=== PATIENT | female | born 1950 | race Caucasian/White ===

== ENCOUNTER 2018-04-18 10:00 | Inpatient (IN) | payer MEDICARE ==
[2018-04-16 14:17] LABS: BASOPHILS # (AUTO) 0.2 X10'3 (0-0.2); BASOPHILS % (AUTO) 1.8 % (0-1); EOSINOPHILS # (AUTO) 0.4 X10'3 (0-0.9); EOSINOPHILS % (AUTO) 3.1 % (0-6); LYMPHOCYTES # (AUTO) 2.4 X10'3 (1.1-4.8); LYMPHOCYTES % (AUTO) 17.7 % (21-51); MEAN CORPUSCULAR HEMOGLOBIN 30.6 PG (27.0-31.0); MEAN CORPUSCULAR HGB CONC 34.3 % (33.0-36.5); MEAN CORPUSCULAR VOLUME 89.2 FL (78-98); MEAN PLATELET VOLUME 8.6 FL (7.4-10.4); MONOCYTES # (AUTO) 0.7 X10'3 (0-0.9); MONOCYTES % (AUTO) 5.1 % (2-12); NEUTROPHILS % (AUTO) 72.3 % (42-75); PRE OP HEMATOCRIT 41.4 % (35.0-45.0); PRE OP HEMOGLOBIN 14.2 g/dL (12.0-16.0); PRE OP PLATELET COUNT 291 X10'3 (140-440); RED BLOOD COUNT 4.64 X10'6 (4.20-5.60); RED CELL DISTRIBUTION WIDTH 13.4 % (11.5-14.5)
[2018-04-16 14:30] LABS: CLARITY,URINE CLEAR (Clear); COLOR,URINE YELLOW (Yellow); GLUCOSE, URINE NEGATIVE (Neg); KETONES,URINE TRACE mg/dl (Neg); LEUKOCYTE ESTERASE ,URINE TRACE (Neg); NITRITES, URINE NEGATIVE (Neg); OCCULT BLOOD,URINE NEGATIVE (Neg); PH,URINE 5.5 (4.8-8.0); PROTEIN,URINE NEGATIVE (Neg); UROBILINOGEN,URINE 0.2 E.U/dL (0.2-1.0)
[2018-04-16 14:32] LABS: PRE OP PROTIME 9.7 SECONDS (9.0-12.0)
[2018-04-16 14:33] LABS: ALBUMIN 3.8 G/DL (3.4-5.0); ALBUMIN/GLOBULIN RATIO 1.1 (1.1-1.5); ALKALINE PHOSPHATASE 80 IU/L (46-116); BLOOD UREA NITROGEN 12 MG/DL (7-18); BUN/CREATININE RATIO 18.2 (6.6-38.0); CALCIUM 9.6 MG/DL (8.5-10.1); CHLORIDE 103 MMOL/L (99-107); CREATININE 0.66 MG/DL (0.40-0.90); PRE OP ALT 68 U/L (30-65); PRE OP ANION GAP 12 (8-16); PRE OP AST 42 U/L (10-37); PRE OP BILIRUB, TOTAL 0.3 MG/DL (0.0-1.0); PRE OP GLUCOSE 124 MG/DL (70-104); PRE OP POTASSIUM 3.5 MMOL/L (3.4-5.1); PRE OP SODIUM 142 MMOL/L (135-145); TOTAL CARBON DIOXIDE 27.5 MMOL/L (24-32); TOTAL PROTEIN 7.4 G/DL (6.4-8.2); eGFR 90 ML/MIN
[2018-04-16 14:45] LABS: UA COLLECTION TYPE CLN CATCH MIDSTREAM
[2018-04-16 14:46] LABS: RBC,URINE NONE SEEN /HPF (0-2)
[2018-04-16 14:47] LABS: BACTERIA,URINE NONE SEEN /HPF (Neg); SQUAMOUS EPITHELIAL CELL,UR FEW /LPF (FEW)
[2018-04-18] VITALS (20 sets, daily range): BP systolic 91–119; BP diastolic 57–80
[~2018-04-18] VITALS: Ht 167.6 cm; Wt 54.4 kg
[~2018-04-18 10:00] MED LIST: IBUP100O19 PO; MESA0.37 PO; OMEP40CA37 PO; VANCOMYCIN INJ 1000 MG in NORMAL SALINE 250ml IV.SOLN IV ONE; acetaminophen 325mg tablet PO ONE; cefazolin/dext.iso 2gm/100 ML IV ONE; celeCOXIB 100mg capsule PO ONE; famotidine 20mg tablet PO ONE; gabapentin 300mg capsule PO ONE; metoclopramide 5 mg/ml inj IV ONE; oxyCODONE SR 10mg (sust. release) tab -2 tabs (20mg) PO ONE; ringers solution, lacted 1,000 ML IV SCH; tranexamic acid inj. 1,000 MG in normal saline 100ml IV soln 90 ML IV ONE
[2018-04-18] MEDS ORDERED: diphenhydrAMINE 25mg capsule PO PRN ×2 (10:35)
[2018-04-18] MEDS ORDERED: magnesium hydroxide 30ml (MOM) UD suspension PO PRN (10:35)
[2018-04-18] MEDS: pantoprazole 40mg Tablet.DR PO SCH (10:35)
[2018-04-18] MEDS ORDERED: bisacodyl 10mg suppository rectal RC PRN (10:35)
[2018-04-18] MEDS ORDERED: acetaminophen 325mg tablet PO PRN (10:35)
[2018-04-18] MEDS ORDERED: HYDROmorphone 1 mg/ml syringe IV PRN ×2 (10:35)
[2018-04-18] MEDS ORDERED: oxyCODONE/APAP 5-325mg tablet PO PRN (10:35)
[2018-04-18] MEDS ORDERED: LIDOcaine 1% (10mg/ml) 2ml vial ONE (11:11)
[2018-04-18] MEDS ORDERED: EPINEPHRINE SQ ONE (12:00)
[2018-04-18] MEDS ORDERED: ROPIVACAINE SQ ONE (12:00)
[2018-04-18] MEDS ORDERED: NORMAL SALINE SQ ONE (12:00)
[2018-04-18] MEDS ORDERED: vancomycin 1,000mg inj ONE (12:04)
[2018-04-18] MEDS ORDERED: ketorolac trometh. 30mg/ml inj. ONE (12:04)
[2018-04-18] MEDS ORDERED: ROPIVAcaine 0.5% (5mg/ml) 30ml vial ONE (12:08)
[2018-04-18] MEDS ORDERED: tetracaine 1% (10mg/ml) pres. free inj. ONE (12:08)
[2018-04-18] MEDS ORDERED: MIDAZolam 1mg/ml 10ml vial ONE (12:55)
[2018-04-18] MEDS ORDERED: BUPIVAcaine/dex-water/PF 7.5 mg/ml 2ml ampul ONE (12:56)
[2018-04-18] MEDS ORDERED: fentaNYL/PF 50MCG/1 ML 2ML syringe ONE (12:56)
[2018-04-18] MEDS ORDERED: ePHEDrine 50MG/ML INJ. ONE (13:22)
[2018-04-18] MEDS ORDERED: ringers solution, lacted 1,000 ML IV SCH (13:39)
[2018-04-18] MEDS ORDERED: ondansetron/PF 4mg/2ml inj IV PRN ×2 (13:40→13:45)
[2018-04-18] MEDS ORDERED: hydrALAZINE 20mg/ml inj. IV PRN (13:40)
[2018-04-18] MEDS ORDERED: labetalol 20mg/4ml (5mg/ml) syringe IV PRN (13:40)
[2018-04-18] MEDS ORDERED: fentaNYL/PF 50MCG/1 ML 2ML syringe IV PRN ×2 (13:40)
[2018-04-18] MEDS ORDERED: morphine 4 MG/ML inj SYRINge IV PRN ×2 (13:40)
[2018-04-18] MEDS ORDERED: diphenhydrAMINE 50 mg/ml inj IV PRN (13:45)
[2018-04-18] MEDS: ceFAZolin 1GM/D5W- ADD-VANTAGE 50 ML IV SCH (17:26)
[2018-04-18] MEDS: potassium cl 20mEq in 1/2 NS 1,000 ML IV SCH ×2 (17:32→18:32)
[2018-04-18] MEDS ORDERED: tranexamic acid inj. 1,000 MG in normal saline 100ml IV soln 100 ML IV ONE (19:00)
[2018-04-18] MEDS: ascorbic acid 500mg tablet PO SCH (19:58)
[2018-04-18] MEDS ORDERED: vancomycin/NS 1 GM ADD-VANTAGE 250 ML IV SCH (20:00)
[2018-04-18] MEDS: gabapentin 300mg capsule PO SCH (20:19)
[2018-04-18] MEDS: sennosides 8.6mg tablet PO SCH (20:19)
[2018-04-19] MEDS: ceFAZolin 1GM/D5W- ADD-VANTAGE 50 ML IV SCH (00:20)
[2018-04-19 03:00] VITALS: BP 85/53
[2018-04-19] MEDS: potassium cl 20mEq in 1/2 NS 1,000 ML IV SCH ×3 (03:28→22:42)
[2018-04-19] MEDS: ondansetron/PF 4mg/2ml inj IV PRN ×3 (05:41→18:52)
[2018-04-19 06:00] VITALS: BP 91/53
[2018-04-19 06:50] LABS: BASOPHILS % (AUTO) 0.5 % (0-1); EOSINOPHILS # (AUTO) 0.4 X10'3 (0-0.9); HEMATOCRIT 31.2 % (35.0-45.0); HEMOGLOBIN 10.1 g/dl (12.0-16.0); LYMPHOCYTES # (AUTO) 2.3 X10'3 (1.1-4.8); LYMPHOCYTES % (AUTO) 25.1 % (21-51); MEAN CORPUSCULAR HGB CONC 32.3 % (33.0-36.5); MEAN CORPUSCULAR VOLUME 89.7 FL (78-98); MEAN PLATELET VOLUME 8.4 FL (7.4-10.4); MONOCYTES # (AUTO) 0.8 X10'3 (0-0.9); MONOCYTES % (AUTO) 8.5 % (2-12); NEUTROPHILS # (AUTO) 5.7 X10'3 (1.8-7.7); NEUTROPHILS % (AUTO) 61.9 % (42-75); PLATELET COUNT 240 X10'3 (140-440); RED BLOOD COUNT 3.48 X10'6 (4.20-5.60); RED CELL DISTRIBUTION WIDTH 14.2 % (11.5-14.5); WHITE BLOOD COUNT 9.2 X10'3 (4.5-11.0)
[2018-04-19 07:15] LABS: ANION GAP 8 (8-16); CHLORIDE 104 MMOL/L (99-107); POTASSIUM 3.8 MMOL/L (3.5-5.1); SODIUM 137 MMOL/L (135-145); TOTAL CARBON DIOXIDE 25.3 MMOL/L (24-32)
[2018-04-19] MEDS: multivitamins, therapeutics tablet PO SCH (08:13)
[2018-04-19] MEDS: aspirin 325mg tablet PO SCH (08:13)
[2018-04-19] MEDS: gabapentin 300mg capsule PO SCH ×3 (08:13→22:35)
[2018-04-19] MEDS: ascorbic acid 500mg tablet PO SCH ×2 (08:13→19:54)
[2018-04-19 10:20] VITALS: BP 104/62
[2018-04-19] MEDS: oxyCODONE/APAP 10/325mg tablet PO PRN ×3 (11:34→19:55)
[2018-04-19 14:00] VITALS: BP 98/58
[2018-04-19] MEDS: APRISO 0.375 GM PO SCH (14:56)
[2018-04-19 18:00] VITALS: BP 101/68
[2018-04-19] MEDS ORDERED: lactose-reduced food (Ensure High Protein) 237ml bottle PO SCH (18:00)
[2018-04-19] MEDS: celeCOXIB 100mg capsule PO SCH (19:55)
[2018-04-19] MEDS: sennosides 8.6mg tablet PO SCH (21:00)
[2018-04-19 22:00] VITALS: BP 111/65
[2018-04-20] MEDS: ondansetron/PF 4mg/2ml inj IV PRN ×2 (02:14→07:56)
[2018-04-20] MEDS: oxyCODONE/APAP 10/325mg tablet PO PRN ×4 (02:15→17:41)
[2018-04-20 06:00] VITALS: BP 150/90
[2018-04-20 07:05] LABS: BASOPHILS # (AUTO) 0.1 X10'3 (0-0.2); BASOPHILS % (AUTO) 0.7 % (0-1); EOSINOPHILS # (AUTO) 0.3 X10'3 (0-0.9); EOSINOPHILS % (AUTO) 2.8 % (0-6); HEMATOCRIT 31.2 % (35.0-45.0); HEMOGLOBIN 10.3 g/dl (12.0-16.0); LYMPHOCYTES # (AUTO) 1.1 X10'3 (1.1-4.8); LYMPHOCYTES % (AUTO) 11.9 % (21-51); MEAN CORPUSCULAR HEMOGLOBIN 29.6 PG (27.0-31.0); MEAN CORPUSCULAR VOLUME 89.7 FL (78-98); MEAN PLATELET VOLUME 8.9 FL (7.4-10.4); MONOCYTES % (AUTO) 10.3 % (2-12); NEUTROPHILS # (AUTO) 7.1 X10'3 (1.8-7.7); NEUTROPHILS % (AUTO) 74.3 % (42-75); PLATELET COUNT 256 X10'3 (140-440); RED BLOOD COUNT 3.48 X10'6 (4.20-5.60); RED CELL DISTRIBUTION WIDTH 13.8 % (11.5-14.5); WHITE BLOOD COUNT 9.6 X10'3 (4.5-11.0)
[2018-04-20] MEDS: ascorbic acid 500mg tablet PO SCH ×2 (08:00→20:12)
[2018-04-20] MEDS: APRISO 0.375 GM PO SCH (08:00)
[2018-04-20] MEDS: gabapentin 300mg capsule PO SCH ×3 (08:00→20:12)
[2018-04-20] MEDS: multivitamins, therapeutics tablet PO SCH (08:00)
[2018-04-20] MEDS: celeCOXIB 100mg capsule PO SCH ×2 (08:00→20:12)
[2018-04-20] MEDS: aspirin 325mg tablet PO SCH (08:30)
[2018-04-20 10:00] VITALS: BP 148/81
[2018-04-20] MEDS: pantoprazole 40mg Tablet.DR PO SCH (10:35)
[2018-04-20] MEDS: metoclopramide 5 mg/ml inj IV PRN ×2 (13:15→19:26)
[2018-04-20 18:00] VITALS: BP 121/72
[2018-04-20] MEDS: sennosides 8.6mg tablet PO SCH (20:12)
[2018-04-20 22:00] VITALS: BP 101/60
[2018-04-21] MEDS: oxyCODONE/APAP 10/325mg tablet PO PRN ×3 (01:21→09:22)
[2018-04-21 07:45] LABS: BASOPHILS % (AUTO) 0.4 % (0-1); EOSINOPHILS # (AUTO) 0.3 X10'3 (0-0.9); EOSINOPHILS % (AUTO) 2.7 % (0-6); HEMATOCRIT 35.5 % (35.0-45.0); HEMOGLOBIN 11.8 g/dl (12.0-16.0); LYMPHOCYTES # (AUTO) 1.8 X10'3 (1.1-4.8); LYMPHOCYTES % (AUTO) 17.7 % (21-51); MEAN CORPUSCULAR HEMOGLOBIN 29.7 PG (27.0-31.0); MEAN CORPUSCULAR HGB CONC 33.2 % (33.0-36.5); MEAN CORPUSCULAR VOLUME 89.6 FL (78-98); MEAN PLATELET VOLUME 8.3 FL (7.4-10.4); MONOCYTES # (AUTO) 1.2 X10'3 (0-0.9); NEUTROPHILS # (AUTO) 6.8 X10'3 (1.8-7.7); NEUTROPHILS % (AUTO) 67.2 % (42-75); PLATELET COUNT 350 X10'3 (140-440); RED BLOOD COUNT 3.96 X10'6 (4.20-5.60); RED CELL DISTRIBUTION WIDTH 13.8 % (11.5-14.5); WHITE BLOOD COUNT 10.2 X10'3 (4.5-11.0)
[2018-04-21] MEDS: ascorbic acid 500mg tablet PO SCH (09:32)
[2018-04-21] MEDS: celeCOXIB 100mg capsule PO SCH (09:32)
[2018-04-21] MEDS: aspirin 325mg tablet PO SCH (09:32)
[2018-04-21] MEDS: multivitamins, therapeutics tablet PO SCH (09:32)
[2018-04-21] MEDS: gabapentin 300mg capsule PO SCH (09:32)
[2018-04-21] MEDS: APRISO 0.375 GM PO SCH (09:33)
== END 2018-04-21 10:35 | disposition home or self-care (01) | DRG 470 ==
LOC: EDSTATUS 10:00 → PAS IN 10:12 → EDSTATUS 12:15 → ORTHO 4S 17:06
PROVIDERS: ADMIT Orthopaedic Surgery; ATTEND Orthopaedic Surgery
PROC: 3E0T3BZ Introduction of Anesthetic Agent into Peripheral Nerves and Plexi, Percutaneous Approach (ICD-10-PCS; 2018-04-18)
PROC: 0SRD0J9 Replacement of Left Knee Joint with Synthetic Substitute, Cemented, Open Approach (ICD-10-PCS; principal; 2018-04-18 12:54)
DX: M17.12 Unilateral primary osteoarthritis, left knee (principal); G89.4 Chronic pain syndrome; K21.9 Gastro-esophageal reflux disease without esophagitis; M21.062 Valgus deformity, not elsewhere classified, left knee; M25.762 Osteophyte, left knee; Z88.6 Allergy status to analgesic agent; Z88.8 Allergy status to other drugs, medicaments and biological substances; Z79.899 Other long term (current) drug therapy; Z79.82 Long term (current) use of aspirin; Z79.891 Long term (current) use of opiate analgesic; Z80.9 Family history of malignant neoplasm, unspecified
CPT/HCPCS: 36415; 73560; 80051; 80053; 81001; 85025; 85610; 85730; 86885; 86900; 86901; 87070; 87088; 97110; 97116; 97161; 97530; A6449; A6455; A7000; C1713; C1758; C1776; G0378; J0171; J0690; J1170; J1200; J1885; J2250; J2405; J2765; J2795; J3010; J3370; J3490; J7030; J7120